=== PATIENT | female | born 1965 | race Caucasian/White ===

== ENCOUNTER 2017-01-20 07:45 | Day surgery (SDC) | payer BC ==
[2017-01-19 15:41] LABS: BASOPHILS 0.4 %; BASOPHILS ABSOLUTE 0.04 10/3/uL (0.0-0.16); EOSINOPHILS 0.9 %; EOSINOPHILS ABSOLUTE 0.08 10/3/uL (0.0-0.53); HEMATOCRIT 37.5 % (36.0-48.0); HEMOGLOBIN 12.2 g/dL (12.0-16.0); IMMATURE GRANULOCYTES 0.2 %; IMMATURE GRANULOCYTES ABSOLUTE 0.02 10/3/uL (0.0-0.11); LYMPHOCYTES ABSOLUTE 3.59 10/3/uL (0.67-4.30); MEAN CORPUS HGB CONC 32.5 g/dL (32.0-36.0); MEAN CORPUSCULAR HEMOGLOB 19.5 pg (26.0-34.0); MEAN CORPUSCULAR VOLUME 59.8 fL (80-100); MONOCYTES 7.4 %; MONOCYTES ABSOLUTE 0.68 10/3/uL (0.21-1.20); NEUTROPHILS 52.1 %; PLATELET COUNT 210 10/3/uL (150-400); RED CELL COUNT 6.27 10/6/uL (4.0-5.6); WHITE BLOOD CELLS 9.2 10/3/uL (4.5-10.5)
[2017-01-19 15:42] LABS: PARTIAL THROMBO TIME 30.3 SEC (22.5-37.2); PROTIME (NOT ORD) 13.1 SEC (12.0-14.5)
[2017-01-19 15:48] LABS: BUN (BLOOD UREA NITROGEN) 14 MG/DL (6-23); CHLORIDE, SERUM 107 MMOL/L (96-112); CO2 (CARBON DIOXIDE) 29 MMOL/L (24-34); CREATININE 0.64 MG/DL (0.55-1.02); GFR AFRICAN AMERICAN 119 ML/MIN (>=60); GFR NON AFRICAN AMERICAN 103 ML/MIN (>=60); GLUCOSE, SERUM 122 MG/DL (60-99); POTASSIUM, SERUM 4.2 MMOL/L (3.5-5.3); SODIUM, SERUM 142 MMOL/L (135-148)
[2017-01-19 15:57] LABS: MANUAL DIFF NO %
--- NOTE | ~2017-01-20 | OP ---
Record Of Operation [facility] [address] [place]. [address] NAME: MARTIN OROURKE : 63 STATUS : REG [facility]#: [id number] AGE: 51 ADM/REG DATE : 01/20/17 MR#: [id number] REPORT SERV DATE: 01/20/17 DICTATED BY: THANG FISHMAN DATE: 01/20/17 REPORT STATUS : Draft TRANSCRIBED BY: MODRosa DATE: 01/20/17 DATE OF PROCEDURE: 01/20/2017 PREOPERATIVE DIAGNOSES: 1. Adherent bladder calculi. 2. Possible bladder lesion. 3. History of urothelial carcinoma of the bladder. POSTOPERATIVE DIAGNOSES: 1. Adherent bladder calculi. 2. Possible bladder lesion. 3. History of urothelial carcinoma of the bladder. PROCEDURE PERFORMED: Cystoscopy, cold cup bladder biopsy and fulguration, and removal of adherent bladder stones. SURGEON: Thang Fishman M.D. ANESTHESIA: General. ESTIMATED BLOOD LOSS: 5 mL. INDICATIONS: This is a 51-year-old white female, with a history of recurrent low-grade urothelial carcinoma of the bladder. Recent cystoscopy has revealed enlarging adherent calculi to the posterior right bladder wall and right bladder floor. Additionally, there is a questionable abnormal area in the right trigone/bladder neck region. We are planning cysto, biopsy, fulguration, and removal of the adherent bladder stones. Risks of infection, bleeding, failure, need for further surgery have been discussed. PROCEDURE IN DETAIL: The patient was taken to the operating room and underwent a general anesthetic. She was placed in the lithotomy position on the table, and her external genitalia were sterilely prepped and draped. The 22-Nigerien cystoscope sheath with 30-degree lens was inserted under direct vision per urethra with the aid of the video monitor. The urethra looked normal. The bladder mucosa was thoroughly inspected. No tumors were noted. There was a little bit of abnormal change less than a centimeter in size in the right bladder neck area. Immediately adjacent to this, there was a previous biopsy site with a small stone adherent to it. On the posterior bladder wall, there was another biopsy area with two different stones adherent to this spot as well, the largest of which was probably 4 mm in size. There was no sign of any definite recurrent tumor and the remainder of the bladder mucosa looked normal. Single orifices were seen which looked normal. There was a moderate cystocele present. The cold cup biopsy forceps were then used to remove the adherent stones from the posterior wall site. This was quite easy and the stones were not deeply imbedded, but rather just adherent to the surface. Very shallow biopsies were taken of this area. In a similar fashion, at the site of the third stone, a shallow biopsy was taken encompassing the stone as well. These three sites were fulgurated with the Bugbee electrode. I took four separate cold cup biopsy sites of the irritated appearing mucosa Record Of [address] [address] NAME: MARTIN OROURKE : 63 STATUS : REG [facility] PAT#: [id number] AGE: 51 ADM/REG DATE : 01/20/17 MR#: [id number] REPORT SERV DATE: 01/20/17 DICTATED BY: THANG FISHMAN DATE: 01/20/17 REPORT STATUS : Draft TRANSCRIBED BY: MODL DATE: 01/20/17 close to the right bladder neck and this area was fulgurated lightly using the Bugbee electrode. The stones were sent for analysis. The bladder tissue was sent to Pathology. The bladder was then drained and reinspected with no sign of bleeding or any other significant abnormalities noted. The bladder was drained again, the endoscopic apparatus was removed, and the patient was taken to recovery in stable condition. DIANA/LUIZ Thang Fishman M.D. / [id number] CC: Thang Fishman M.D.
[~2017-01-20 07:45] MED LIST: *DENIES; MULTIVIT/MIN PO; OS500+D PO
[2017-01-25 16:48] LABS: STONE COMPOSITION TWO DNR (())
== END 2017-01-20 23:59 | disposition home or self-care (01) ==
LOC: SDC 07:45
PROVIDERS: Urology
PROC: 0TCB8ZZ Extirpation of Matter from Bladder, Via Natural or Artificial Opening Endoscopic (ICD-10-PCS; principal; 2017-01-20 08:45)
PROC: 0TBB8ZX Excision of Bladder, Via Natural or Artificial Opening Endoscopic, Diagnostic (ICD-10-PCS; 2017-01-20 08:45)
DX: N21.0 Calculus in bladder (principal); N30.20 Other chronic cystitis without hematuria; Z79.52 Long term (current) use of systemic steroids; Z79.899 Other long term (current) drug therapy; Z90.89 Acquired absence of other organs; Z98.890 Other specified postprocedural states
CPT/HCPCS: 80048; 82365; 85025; 85610; 85730; 88305; 93005; A9270-GY; J2250; J2405; J3010